=== PATIENT | female | born 1990 | race Caucasian/White ===

== ENCOUNTER 2017-01-31 20:35 | Emergency (ER) | payer MEDICAID ==
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
[2017-01-31] MEDS ORDERED: Levofloxacin/Dextrose 5%-Water 500 MG in Premix Bag 1 BAG IV ONE (21:08)
[2017-01-31] MEDS ORDERED: Sodium Chloride 0.9% 1,000 ML IV ONE (21:21)
[2017-01-31] MEDS ORDERED: Ondansetron 4 MG/2 ML SDV IVPUSH ONE (22:46)
[2017-01-31] MEDS ORDERED: Morphine 2 MG/ML Syringe IVPUSH ONE (22:46)
[2017-02-01] MEDS ORDERED: Acetaminophen/HYDROcodone 325-5 MG Tab PO ONE (00:17)
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
== END 2017-02-01 00:20 | disposition home or self-care (01) ==
LOC: FB.ED 20:35
DX: S81.002A Unspecified open wound, left knee, initial encounter (principal); Z88.0 Allergy status to penicillin; W34.00XA Accidental discharge from unspecified firearms or gun, initial encounter
CPT/HCPCS: 36415; 73590; 73700; 80048; 85025; 85610; 99284; A9270; G0480; J1956; J2270; J2405; J7040